=== PATIENT | male | born 1960 | race African-American/Black ===

== ENCOUNTER 2016-08-27 21:09 | Emergency (ER) | payer SELFPAY ==
[~2016-08-27 21:09] MED LIST: ATENOLOL; ELAVIL; ISOSORBIDE; NITR1OIN; OMEPRAZOLE; PROPRANOLOL; SIMVASTATIN
== END 2016-08-27 22:30 | disposition left against medical advice (07) ==
LOC: ER 21:09
DX: R07.9 Chest pain, unspecified (principal); Z53.21 Procedure and treatment not carried out due to patient leaving prior to being seen by health care provider

== ENCOUNTER 2017-02-10 22:03 | Inpatient (IN) | payer SELFPAY ==
[~2017-02-10] VITALS: Ht 175.3 cm; Wt 63.5 kg
[2017-02-10] MEDS ORDERED: NITROGLYCERIN OINT 1GM/INCH UDPKT TD STA (23:04)
[2017-02-10] MEDS ORDERED: MORPHINE SULFATE 4 MG/ML CPJ (NOT FOR IM USE) IV ONE (23:15)
[2017-02-10 23:29] LABS: PARTIAL THROMBOPLASTIN TIME 26.9 sec (23.4-31.0); PROTHROMBIN TIME 10.1 sec (9.4-11.6)
[2017-02-10 23:33] LABS: BASOPHILS % 0.6 % (0.0-2.0); EOSINOPHILS % 5.1 % (0.0-5.0); HEMOGLOBIN. 11.4 g/dL (14.0-18.0); LYMPHOCYTES % 28.6 % (20.0-50.0); MEAN CORPUSCULAR HEMOGLOBIN 25.3 pg (28.0-32.0); MEAN CORPUSCULAR VOLUME 79.9 fL (80.0-94.0); MEAN PLATELET VOLUME 8.4 fl (7.4-10.4); MONOCYTES % 10.2 % (2.0-8.0); NEUTROPHILS % 55.5 % (40.0-76.0); PLATELET 216 x1000/uL (130-400); RED BLOOD CELL COUNT 4.51 mill/uL (4.7-6.1); RED CELL DISTRIBUTION WIDTH 19.9 % (11.6-14.6)
[2017-02-10 23:35] LABS: CARBON DIOXIDE 27 mEq/L (21-32); CHLORIDE 108 mEq/L (98-107); TROPONIN I < 0.02 ng/mL (0.00-0.04)
[2017-02-10] MEDS ORDERED: ONDANSETRON HCL 4MG/2ML VIAL ONE (23:39)
[2017-02-10] MEDS ORDERED: ONDANSETRON HCL 4MG/2ML VIAL IV ONE (23:45)
[2017-02-11] MEDS ORDERED: NITROGLYCERIN OINT 1GM/INCH UDPKT TD ONE (00:19)
[2017-02-11] MEDS ORDERED: MORPHINE SULFATE 2 MG/ML CPJ (NOT FOR IM USE) IV PRN ×2 (02:00→14:30)
[2017-02-11 03:30] VITALS: BP 136/80
[2017-02-11] MEDS ORDERED: NITROGLYCERIN 0.4MG TABLET SL SL PRN (05:00)
[2017-02-11] MEDS ORDERED: LACTULOSE 20G/30ML UDC PO SCH (05:00)
[2017-02-11] MEDS ORDERED: ACETAMINOPHEN 650MG/20.3ML UDC PO PRN (05:00)
[2017-02-11] MEDS: MORPHINE SULFATE 2 MG/ML CPJ (NOT FOR IM USE) IV PRN ×2 (06:03→10:37)
[2017-02-11 08:00] VITALS: BP 145/102
[2017-02-11] MEDS: HYDROCODONE/ACETAMINOPHEN 10/325MG TABLET PO PRN ×3 (08:57→23:15)
[2017-02-11] MEDS: CLOPIDOGREL 75MG TABLET PO SCH (09:00)
[2017-02-11] MEDS: FUROSEMIDE 40MG/4ML VIAL IVP SCH (09:00)
[2017-02-11] MEDS: DOCUSATE SODIUM SUGAR FREE 100MG/10ML UDC NG SCH (09:00)
[2017-02-11] MEDS: METOPROLOL TARTRATE 50MG TABLET PO SCH ×2 (09:00→21:00)
[2017-02-11] MEDS: ISOSORBIDE MONONITRATE 60MG TABLET SR 24HR PO SCH (09:00)
[2017-02-11] MEDS: POTASSIUM CHLORIDE 10MEQ TABLET SR PO SCH (10:00)
[2017-02-11] MEDS: ASPIRIN 81MG TABLET PO SCH (10:00)
[2017-02-11] MEDS: NITROGLYCERIN OINT 1GM/INCH UDPKT TD SCH ×3 (10:00→22:00)
[2017-02-11] MEDS: RANOLAZINE 500 MG TAB.SR.12H PO SCH ×2 (10:00→21:00)
[2017-02-11] MEDS: PANTOPRAZOLE SODIUM 40 MG/VIAL IV SCH (10:01)
[2017-02-11] MEDS: LISINOPRIL 20MG TABLET PO SCH (10:01)
[2017-02-11] MEDS: AMLODIPINE 5MG TABLET PO SCH (10:01)
[2017-02-11] MEDS: LACTULOSE 20G/30ML UDC PO SCH (10:02)
[2017-02-11 11:16] LABS: CREATINE KINASE 151 IU/L (39-308); TROPONIN I < 0.02 ng/mL (0.00-0.04)
[2017-02-11 11:17] LABS: CREATINE KINASE MB FRACTION 1.4 ng/mL (0.5-3.6)
[2017-02-11 11:57] VITALS: BP 138/82
[2017-02-11 12:00] VITALS: BP 138/82
[2017-02-11] MEDS ORDERED: ISOS60TA4 PO (13:27)
[2017-02-11] MEDS ORDERED: PROT40 PO (13:27)
[2017-02-11] MEDS ORDERED: DOCU-150 PO (13:27)
[2017-02-11] MEDS ORDERED: ATOR40TA70 PO (13:27)
[2017-02-11] MEDS ORDERED: POTA10CA42 PO (13:27)
[2017-02-11] MEDS ORDERED: OXYC10TA48 PO (13:27)
[2017-02-11] MEDS ORDERED: AMLO10TA80 PO (13:27)
[2017-02-11] MEDS ORDERED: ASPI-1158 PO (13:27)
[2017-02-11] MEDS ORDERED: LACT10SO6 MT (13:27)
[2017-02-11] MEDS ORDERED: HYDR-4009 PO (13:27)
[2017-02-11] MEDS ORDERED: FURO40TA5 PO (13:27)
[2017-02-11] MEDS ORDERED: METO-385 PO (13:27)
[2017-02-11] MEDS ORDERED: NITR0.4T49 SL (13:27)
[2017-02-11] MEDS ORDERED: CLOP75TA33 PO (13:27)
[2017-02-11] MEDS ORDERED: ALPR0.5T PO (13:27)
[2017-02-11] MEDS ORDERED: AMIT100T2 PO (13:27)
[2017-02-11] MEDS ORDERED: RANO10003 PO (13:27)
[2017-02-11 16:00] VITALS: BP 139/86
[2017-02-11] MEDS: MORPHINE SULFATE 10 MG/ML CPJ IV PRN ×2 (16:30→21:03)
[2017-02-11] MEDS ORDERED: REGADENOSON 0.4 MG/5 ML IV NR (19:00)
[2017-02-11 20:00] VITALS: BP 115/67
[2017-02-11 20:27] LABS: CREATINE KINASE 137 IU/L (39-308); CREATINE KINASE MB FRACTION 1.6 ng/mL (0.5-3.6); TROPONIN I < 0.02 ng/mL (0.00-0.04)
[2017-02-11] MEDS ORDERED: ATORVASTATIN CALCIUM 40MG TABLET PO SCH (21:00)
[2017-02-11] MEDS ORDERED: AMITRIPTYLINE 50MG TABLET PO SCH (21:00)
[2017-02-12] VITALS: BP 110/70
[2017-02-12] MEDS: MORPHINE SULFATE 10 MG/ML CPJ IV PRN ×2 (01:28→04:54)
[2017-02-12 04:00] VITALS: BP 126/71
[2017-02-12] MEDS: NITROGLYCERIN OINT 1GM/INCH UDPKT TD SCH (06:00)
[2017-02-12 08:00] VITALS: BP 156/104
[2017-02-12] MEDS: PANTOPRAZOLE SODIUM 40 MG/VIAL IV SCH (08:56)
[2017-02-12] MEDS: METOPROLOL TARTRATE 50MG TABLET PO SCH (08:57)
[2017-02-12] MEDS: ASPIRIN 81MG TABLET PO SCH (08:57)
[2017-02-12] MEDS: ISOSORBIDE MONONITRATE 60MG TABLET SR 24HR PO SCH (09:00)
[2017-02-12] MEDS: CLOPIDOGREL 75MG TABLET PO SCH (09:00)
[2017-02-12] MEDS: RANOLAZINE 500 MG TAB.SR.12H PO SCH (09:00)
[2017-02-12] MEDS: FUROSEMIDE 40MG/4ML VIAL IVP SCH (09:00)
[2017-02-12] MEDS: LACTULOSE 20G/30ML UDC PO SCH (09:00)
[2017-02-12] MEDS: LISINOPRIL 20MG TABLET PO SCH (09:00)
[2017-02-12] MEDS: DOCUSATE SODIUM SUGAR FREE 100MG/10ML UDC NG SCH (09:00)
[2017-02-12] MEDS: AMLODIPINE 5MG TABLET PO SCH (09:00)
[2017-02-12] MEDS: POTASSIUM CHLORIDE 10MEQ TABLET SR PO SCH (09:00)
[2017-02-12 09:24] LABS: CREATINE KINASE 115 IU/L (39-308); CREATINE KINASE MB FRACTION 1.3 ng/mL (0.5-3.6); HDL CHOLESTEROL 80 mg/dL (40-59); LDL CHOLESTEROL 64 mg/dL (5-100); TROPONIN I < 0.02 ng/mL (0.00-0.04)
== END 2017-02-12 09:20 | disposition left against medical advice (07) | DRG 198 ==
LOC: ER 22:29 → 5WST 02-11 00:47 → ENRESERV 02-11 01:37
PROVIDERS: ADMIT Internal Medicine; ATTEND Internal Medicine
DX: I25.10 Atherosclerotic heart disease of native coronary artery without angina pectoris (principal); I10 Essential (primary) hypertension; E78.5 Hyperlipidemia, unspecified; I49.9 Cardiac arrhythmia, unspecified; F10.10 Alcohol abuse, uncomplicated; F17.210 Nicotine dependence, cigarettes, uncomplicated; F41.9 Anxiety disorder, unspecified; Z53.21 Procedure and treatment not carried out due to patient leaving prior to being seen by health care provider; I16.0 Hypertensive urgency; K21.9 Gastro-esophageal reflux disease without esophagitis; K76.9 Liver disease, unspecified; Z79.899 Other long term (current) drug therapy; Z82.49 Family history of ischemic heart disease and other diseases of the circulatory system; Z86.010 Personal history of colon polyps; I25.2 Old myocardial infarction; Z72.89 Other problems related to lifestyle
CPT/HCPCS: 36415; 71010; 80053; 80061; 82550; 82553; 83690; 84484; 85025; 85610; 85651; 85730; 93005; C9113; J1940; J2270; J2405

== ENCOUNTER 2018-03-06 17:13 | Inpatient (IN) | payer MEDICAID ==
[~2018-03-06] VITALS: Ht 175.3 cm; Wt 65.8 kg
[~2018-03-06 17:13] MED LIST changes: +ALPR0.5T PO; +AMIT100T2 PO; +AMLO10TA80 PO; +ASPI-1158 PO; +ATOR40TA70 PO; +CLOP75TA33 PO; +DOCU-150 PO; +FURO40TA5 PO; +HYDR-4009 PO; +ISOS60TA4 PO; +LACT10SO6 MT; +METO-385 PO; +NITR0.4T49 SL; +OXYC10TA48 PO; +POTA10CA42 PO; +PROT40 PO; +RANO10003 PO
[2018-03-06] MEDS ORDERED: SODIUM CHLORIDE 0.9% 1,000 ML IV ONE (18:40)
[2018-03-06] MEDS ORDERED: ONDANSETRON HCL 4MG/2ML INJ IV STA (18:40)
[2018-03-06] MEDS ORDERED: MORPHINE SULFATE 4 MG/ML CPJ (NOT FOR IM USE) IV STA (18:40)
[2018-03-06 19:13] LABS: BASOPHILS % 0.9 % (0.0-2.0); EOSINOPHILS % 0.8 % (0.0-5.0); HEMOGLOBIN. 13.2 g/dL (14.0-18.0); LYMPHOCYTES % 19.6 % (20.0-50.0); MEAN CORPUSCULAR HEMOGLOBIN 27.7 pg (28.0-32.0); MEAN CORPUSCULAR VOLUME 85.8 fL (80.0-94.0); MEAN PLATELET VOLUME 9.5 fl (7.4-10.4); MONOCYTES % 5.7 % (2.0-8.0); PLATELET 219 x1000/uL (130-400); RED BLOOD CELL COUNT 4.78 mill/uL (4.7-6.1)
[2018-03-06 19:17] LABS: CHLORIDE 107 mEq/L (98-107)
[2018-03-06 19:21] LABS: PROTHROMBIN TIME 10.1 sec (9.1-11.1)
[2018-03-06 20:07] LABS: CLARITY URINE CLEAR (CLEAR); COLOR URINE YELLOW (YELLOW); KETONES URINE NEGATIVE (NEGATIVE); LEUKOCYTE ESTERASE URINE NEGATIVE (NEGATIVE); NITRITE URINE NEGATIVE (NEGATIVE); OCCULT BLOOD URINE NEGATIVE (NEGATIVE); PH URINE 6.5 (4.5-8.0); PROTEIN URINE NEGATIVE (NEGATIVE); SPECIFIC GRAVITY URINE 1.016 (1.005-1.030); UROBILINOGEN URINE 0.2 E.U./dL (0.2-1.0)
[2018-03-06 20:17] LABS: OPIATES URINE SCREEN PRESUMTIVE POSITIVE (NEGATIVE)
[2018-03-06 20:18] LABS: *AMPHETAMINES SCREEN URINE NEGATIVE (NEGATIVE); *BARBITURATES SCREEN URINE NEGATIVE (NEGATIVE); *BENZODIAZEPINES SCREEN URINE NEGATIVE (NEGATIVE); *COCAINE SCREEN URINE NEGATIVE (NEGATIVE); CANNABINOID URINE SCREEN NEGATIVE (NEGATIVE); METHADONE URINE SCREEN NEGATIVE (NEGATIVE); PHENCYCLIDINE URINE SCREEN NEGATIVE (NEGATIVE)
[2018-03-06] MEDS ORDERED: MAGNESIUM/ALUMINUM HYDROXIDE/SIMETHICONE 30ML UDC PO PRN (21:15)
[2018-03-06] MEDS ORDERED: DOCUSATE SODIUM 100MG CAPSULE PO PRN (21:15)
[2018-03-06] MEDS ORDERED: IPRATROPIUM/ALBUTEROL 0.5-3(2.5)MG/3ML NEB INH PRN (21:15)
[2018-03-06] MEDS ORDERED: NITROGLYCERIN 0.4MG TABLET SL SL PRN (21:15)
[2018-03-06] MEDS ORDERED: GUAIFENESIN 200MG/10ML SUGAR FREE UDC PO PRN (21:15)
[2018-03-06] MEDS ORDERED: ONDANSETRON HCL 4MG/2ML INJ IV PRN (21:15)
[2018-03-06] MEDS ORDERED: KETOROLAC 15MG/ML VIAL IV PRN (21:15)
[2018-03-06] MEDS ORDERED: ZOLPIDEM TARTRATE 5MG TABLET PO PRN (21:15)
[2018-03-06] MEDS ORDERED: CLONIDINE 0.1MG TABLET PO PRN (21:15)
[2018-03-06] MEDS ORDERED: ACETAMINOPHEN 325MG TABLET PO PRN (21:15)
[2018-03-06] MEDS ORDERED: ASPIRIN 81MG TABLET PO ONE (21:30)
[2018-03-06] MEDS ORDERED: DIPHENHYDRAMINE 50MG/ML VIAL IV PRN (23:02)
[2018-03-06] MEDS ORDERED: IOHEXOL-300 100 ML BOTTLE ONE (23:27)
[2018-03-06 23:45] VITALS: BP 144/89
[2018-03-07] VITALS: BP 138/83
[2018-03-07 00:19] LABS: CREATINE KINASE 159 IU/L (39-308)
[2018-03-07 00:20] LABS: CREATINE KINASE MB FRACTION < 1.0 ng/mL (0.5-3.6)
[2018-03-07 04:00] VITALS: BP 141/94
[2018-03-07 07:31] LABS: CREATINE KINASE 144 IU/L (39-308)
[2018-03-07 07:32] LABS: CREATINE KINASE MB FRACTION < 1.0 ng/mL (0.5-3.6)
[2018-03-07 08:00] VITALS: BP 95/54
[2018-03-07] MEDS ORDERED: AMLODIPINE 10MG TABLET PO SCH (09:00)
[2018-03-07] MEDS ORDERED: ASPIRIN 325MG EC TABLET PO SCH (09:00)
[2018-03-07] MEDS ORDERED: FAMOTIDINE 20MG TABLET PO SCH (09:00)
[2018-03-07] MEDS ORDERED: METOPROLOL TARTRATE 25MG TABLET PO SCH (09:00)
[2018-03-07 09:29] VITALS: BP 98/54
[2018-03-08] MEDS ORDERED: ENOXAPARIN 40MG/0.4ML SYR SUBCUT SCH (09:00)
== END 2018-03-07 10:30 | disposition home or self-care (01) | DRG 198 ==
LOC: ER 17:13 → ENRESERV 18:49 → CANBEDREQ 19:56 → 6WST 21:28 → ER 23:40 → 6WST 03-07 02:35
PROVIDERS: ADMIT Internal Medicine; ATTEND Internal Medicine
DX: R07.89 Other chest pain (principal); I25.10 Atherosclerotic heart disease of native coronary artery without angina pectoris; K74.60 Unspecified cirrhosis of liver; E78.00 Pure hypercholesterolemia, unspecified; I10 Essential (primary) hypertension; K21.9 Gastro-esophageal reflux disease without esophagitis; Z76.5 Malingerer [conscious simulation]; Z95.5 Presence of coronary angioplasty implant and graft
CPT/HCPCS: 36415; 71045; 74176; 80061; 80305; 82550; 82553; 83036; 83880; 84484; 93005; G0482; J1200; J1885; J2270; J2405; J7030; Q9967

== ENCOUNTER 2019-03-21 03:36 | Emergency (ER) | payer MEDICAID ==
[~2019-03-21] VITALS: Ht 175.3 cm; Wt 68.0 kg
[2019-03-21] MEDS ORDERED: NITROGLYCERIN 0.4MG TABLET SL SL ONE (05:30)
[2019-03-21 05:36] LABS: BASOPHILS % 0.9 % (0.0-2.0); EOSINOPHILS % 5.9 % (0.0-5.0); HEMATOCRIT. 37.5 % (42.0-52.0); HEMOGLOBIN. 12.2 g/dL (14.0-18.0); LYMPHOCYTES % 37.3 % (20.0-50.0); MEAN CORPUSCULAR HEMOGLOBIN 27.9 pg (28.0-32.0); MEAN CORPUSCULAR VOLUME 85.5 fL (80.0-94.0); MEAN PLATELET VOLUME 9.7 fl (7.4-10.4); MONOCYTES % 7.6 % (2.0-8.0); NEUTROPHILS % 48.3 % (40.0-76.0); PLATELET 202 x1000/uL (130-400); RED BLOOD CELL COUNT 4.38 mill/uL (4.7-6.1)
[2019-03-21 05:50] LABS: CHLORIDE 107 mEq/L (98-107)
[2019-03-21] MEDS ORDERED: MORPHINE SULFATE 2 MG/ML CPJ (NOT FOR IM USE) IV ONE (07:00)
[2019-03-21 07:15] VITALS: BP 119/83
[2019-03-21] MEDS ORDERED: MORPHINE SULFATE 2 MG/ML CPJ (NOT FOR IM USE) IV PRN (10:30)
[2019-03-21] MEDS ORDERED: GUAIFENESIN 200MG/10ML SUGAR FREE UDC PO PRN (10:30)
[2019-03-21] MEDS ORDERED: NA PHOS,M-B/NA PHOS,DI-BA ENEMA 118ML PR PRN (10:30)
[2019-03-21] MEDS ORDERED: LORAZEPAM 2MG/ML CPJ IV PRN (10:30)
[2019-03-21] MEDS ORDERED: HYDROCODONE/ACETAMINOPHEN 5/325MG TABLET PO PRN (10:30)
[2019-03-21] MEDS ORDERED: CLONIDINE 0.1MG TABLET PO PRN (10:30)
[2019-03-21] MEDS ORDERED: MAGNESIUM/ALUMINUM HYDROXIDE/SIMETHICONE 30ML UDC PO PRN (10:30)
[2019-03-21] MEDS ORDERED: DIPHENHYDRAMINE 50MG/ML VIAL IV PRN (10:30)
[2019-03-21] MEDS ORDERED: DOCUSATE SODIUM 100MG CAPSULE PO PRN (10:30)
[2019-03-21] MEDS ORDERED: ACETAMINOPHEN 325MG TABLET PO PRN (10:30)
[2019-03-21] MEDS ORDERED: ONDANSETRON HCL 4MG/2ML INJ IV PRN (10:30)
[2019-03-21] MEDS ORDERED: IPRATROPIUM/ALBUTEROL 0.5-3(2.5)MG/3ML NEB NEB PRN (10:30)
[2019-03-21] MEDS ORDERED: ENOXAPARIN 40MG/0.4ML SYR SUBCUT SCH (12:00)
[2019-03-22] MEDS ORDERED: ASPIRIN 81MG EC TABLET PO SCH (09:00)
== END 2019-03-21 08:00 | disposition home or self-care (01) ==
LOC: ER 03:36 → EDBEDREQ 06:26 → EDBEDREQTM 06:26 → CANBEDREQ 07:59 → ER 08:00
DX: R07.9 Chest pain, unspecified (principal); I25.10 Atherosclerotic heart disease of native coronary artery without angina pectoris; I25.2 Old myocardial infarction; I13.0 Hypertensive heart and chronic kidney disease with heart failure and stage 1 through stage 4 chronic kidney disease, or unspecified chronic kidney disease; N18.9 Chronic kidney disease, unspecified; I50.9 Heart failure, unspecified; E78.00 Pure hypercholesterolemia, unspecified; Z88.6 Allergy status to analgesic agent; Z79.82 Long term (current) use of aspirin; Z91.012 Allergy to eggs; Z91.018 Allergy to other foods
CPT/HCPCS: 36415; 71045; 80053; 80320; 83880; 84484; 85025; 93005; 96374; 99284; J2270; G0480

== ENCOUNTER 2019-03-31 15:14 | Inpatient (IN) | payer MEDICAID ==
[~2019-03-31] VITALS: Ht 175.3 cm; Wt 49.9 kg
[2019-03-31 16:49] LABS: EOSINOPHILS % 4.5 % (0.0-5.0); HEMATOCRIT. 36.5 % (42.0-52.0); HEMOGLOBIN. 11.8 g/dL (14.0-18.0); LYMPHOCYTES % 25.6 % (20.0-50.0); MEAN CORPUSCULAR HEMOGLOBIN 27.8 pg (28.0-32.0); MEAN CORPUSCULAR VOLUME 86.1 fL (80.0-94.0); MEAN PLATELET VOLUME 9.2 fl (7.4-10.4); MONOCYTES % 10.5 % (2.0-8.0); NEUTROPHILS % 58.4 % (40.0-76.0); PLATELET 175 x1000/uL (130-400); RED BLOOD CELL COUNT 4.24 mill/uL (4.7-6.1); RED CELL DISTRIBUTION WIDTH 17.5 % (11.6-14.6)
[2019-03-31 16:53] LABS: CHLORIDE 106 mEq/L (98-107)
[2019-03-31 16:55] LABS: PROTHROMBIN TIME 9.8 sec (9.6-11.0)
[2019-03-31 16:57] LABS: ETHANOL BLOOD 29 mg/dL
[2019-03-31 17:38] LABS: *AMPHETAMINES SCREEN URINE NEGATIVE (NEGATIVE); *BARBITURATES SCREEN URINE NEGATIVE (NEGATIVE); *COCAINE SCREEN URINE NEGATIVE (NEGATIVE)
[2019-03-31 17:39] LABS: *BENZODIAZEPINES SCREEN URINE NEGATIVE (NEGATIVE); CANNABINOID URINE SCREEN NEGATIVE (NEGATIVE); METHADONE URINE SCREEN NEGATIVE (NEGATIVE); OPIATES URINE SCREEN PRESUMTIVE POSITIVE (NEGATIVE); PHENCYCLIDINE URINE SCREEN NEGATIVE (NEGATIVE)
[2019-03-31] MEDS ORDERED: ACETAMINOPHEN WITH CODEINE 300/30MG TABLET PO STA (22:26)
[2019-03-31] MEDS ORDERED: NITROGLYCERIN 0.4MG TABLET SL SL PRN (22:30)
[2019-03-31] MEDS ORDERED: ASPIRIN 81MG TABLET PO ONE (22:30)
[2019-03-31] MEDS ORDERED: ONDANSETRON HCL 4MG/2ML INJ IV PRN (23:45)
[2019-03-31] MEDS ORDERED: GUAIFENESIN 200MG/10ML SUGAR FREE UDC PO PRN (23:45)
[2019-03-31] MEDS ORDERED: MAGNESIUM/ALUMINUM HYDROXIDE/SIMETHICONE 30ML UDC PO PRN (23:45)
[2019-03-31] MEDS ORDERED: MAGNESIUM HYDROXIDE 400MG/5ML 30ML UDC PO PRN (23:45)
[2019-03-31] MEDS ORDERED: DIPHENHYDRAMINE 50MG/ML VIAL IV PRN (23:45)
[2019-03-31] MEDS ORDERED: LORAZEPAM 0.5MG TABLET PO PRN (23:45)
[2019-03-31] MEDS ORDERED: TEMAZEPAM 15MG CAPSULE PO PRN (23:45)
[2019-03-31] MEDS ORDERED: IPRATROPIUM/ALBUTEROL 0.5-3(2.5)MG/3ML NEB HHN PRN (23:45)
[2019-03-31] MEDS ORDERED: ACETAMINOPHEN 325MG TABLET PO PRN (23:45)
[2019-04-01 04:15] VITALS: BP 129/93
[2019-04-01] MEDS: SODIUM CHLORIDE 0.9% INJ 3ML FLUSH IVF SCH ×3 (06:00→22:00)
[2019-04-01] MEDS: ACETAMINOPHEN WITH CODEINE 300/30MG TABLET PO PRN ×2 (06:41→20:32)
[2019-04-01] MEDS ORDERED: ENOXAPARIN 40MG/0.4ML SYR SUBCUT SCH (09:00)
[2019-04-01] MEDS: DOCUSATE SODIUM 100MG CAPSULE PO SCH ×2 (09:22→16:55)
[2019-04-01] MEDS: ASPIRIN 81MG EC TABLET PO SCH (09:23)
[2019-04-01] MEDS: AMLODIPINE 10MG TABLET PO SCH (09:23)
[2019-04-01] MEDS: METOPROLOL TARTRATE 25MG TABLET PO SCH ×2 (09:23→20:47)
[2019-04-01 10:00] VITALS: BP 146/87
[2019-04-01 12:00] VITALS: BP 124/75
[2019-04-01 12:52] LABS: BASOPHILS % 0.5 % (0.0-2.0); HEMATOCRIT. 34.8 % (42.0-52.0); HEMOGLOBIN. 11.5 g/dL (14.0-18.0); LYMPHOCYTES % 24.8 % (20.0-50.0); MEAN CORPUSCULAR HEMOGLOBIN 28.3 pg (28.0-32.0); MEAN CORPUSCULAR VOLUME 85.6 fL (80.0-94.0); MEAN PLATELET VOLUME 9.3 fl (7.4-10.4); MONOCYTES % 11.1 % (2.0-8.0); NEUTROPHILS % 58.6 % (40.0-76.0); PLATELET 150 x1000/uL (130-400); RED BLOOD CELL COUNT 4.07 mill/uL (4.7-6.1); RED CELL DISTRIBUTION WIDTH 17.4 % (11.6-14.6)
[2019-04-01 13:02] LABS: CHLORIDE 109 mEq/L (98-107)
[2019-04-01] MEDS ORDERED: REGADENOSON 0.4 MG/5 ML IV NR (15:00)
[2019-04-01 16:00] VITALS: BP 147/95
[2019-04-01 20:00] VITALS: BP 138/94
[2019-04-01] MEDS ORDERED: ATORVASTATIN CALCIUM 40MG TABLET PO SCH (21:00)
[2019-04-01] MEDS ORDERED: AMITRIPTYLINE 50MG TABLET PO SCH (21:00)
[2019-04-02 04:00] VITALS: BP 136/90
[2019-04-02] MEDS: SODIUM CHLORIDE 0.9% INJ 3ML FLUSH IVF SCH ×2 (05:49→14:00)
[2019-04-02 07:11] LABS: VITAMIN B12 SERUM 168 pg/mL (211-911)
[2019-04-02 07:25] LABS: BASOPHILS % 0.4 % (0.0-2.0); EOSINOPHILS % 5.2 % (0.0-5.0); HEMATOCRIT. 34.8 % (42.0-52.0); HEMOGLOBIN. 11.5 g/dL (14.0-18.0); LYMPHOCYTES % 22.1 % (20.0-50.0); MEAN CORPUSCULAR HEMOGLOBIN 28.4 pg (28.0-32.0); MEAN CORPUSCULAR VOLUME 85.7 fL (80.0-94.0); MEAN PLATELET VOLUME 9.3 fl (7.4-10.4); MONOCYTES % 9.6 % (2.0-8.0); NEUTROPHILS % 62.7 % (40.0-76.0); PLATELET 155 x1000/uL (130-400); RED BLOOD CELL COUNT 4.06 mill/uL (4.7-6.1); RED CELL DISTRIBUTION WIDTH 17.9 % (11.6-14.6)
[2019-04-02 08:00] VITALS: BP 135/81
[2019-04-02 08:03] LABS: CHLORIDE 109 mEq/L (98-107)
[2019-04-02] MEDS ORDERED: ENOXAPARIN 30MG/0.3ML SYR SUBCUT SCH (09:00)
[2019-04-02] MEDS: DOCUSATE SODIUM 100MG CAPSULE PO SCH (09:00)
[2019-04-02] MEDS ORDERED: CYANOCOBALAMIN 1000MCG/ML VIAL IM SCH (09:15)
[2019-04-02] MEDS: ASPIRIN 81MG EC TABLET PO SCH (10:54)
[2019-04-02] MEDS: AMLODIPINE 10MG TABLET PO SCH (10:54)
[2019-04-02] MEDS: METOPROLOL TARTRATE 25MG TABLET PO SCH (10:55)
[2019-04-02] MEDS: ACETAMINOPHEN WITH CODEINE 300/30MG TABLET PO PRN (11:06)
[2019-04-02 12:00] VITALS: BP 134/79
[2019-04-02 14:31] VITALS: BP 134/79
[2019-04-02 16:00] VITALS: BP 125/79
== END 2019-04-02 17:28 | disposition home or self-care (01) | DRG 203 ==
LOC: ER 15:14 → EEVIPCON 15:14 → 7WST 22:26 → ENRESERV 04-01 03:06
PROVIDERS: ADMIT Internal Medicine; ATTEND Internal Medicine
DX: M94.0 Chondrocostal junction syndrome [Tietze] (principal); I11.0 Hypertensive heart disease with heart failure; I50.9 Heart failure, unspecified; R07.89 Other chest pain; I25.110 Atherosclerotic heart disease of native coronary artery with unstable angina pectoris; E78.5 Hyperlipidemia, unspecified; F41.1 Generalized anxiety disorder; Z95.5 Presence of coronary angioplasty implant and graft; E78.00 Pure hypercholesterolemia, unspecified; Z82.49 Family history of ischemic heart disease and other diseases of the circulatory system; Z88.8 Allergy status to other drugs, medicaments and biological substances; Z79.82 Long term (current) use of aspirin; Z79.891 Long term (current) use of opiate analgesic; I25.2 Old myocardial infarction; Z76.5 Malingerer [conscious simulation]; Z79.899 Other long term (current) drug therapy
CPT/HCPCS: 36415; 71045; 80048; 80053; 80305; 80320; 82607; 83880; 84443; 84484; 85025; 93005; 93306; 93970; 99285; J1650; J3420; G0480

== ENCOUNTER 2019-05-17 15:19 | Emergency (ER) | payer MEDICAID ==
[~2019-05-17] VITALS: Ht 175.3 cm; Wt 74.8 kg
[~2019-05-17 15:19] MED LIST changes: -LACT10SO6 MT
[2019-05-17 18:19] VITALS: BP 131/63
== END 2019-05-17 18:20 | disposition left against medical advice (07) ==
LOC: ER 15:19
DX: R07.89 Other chest pain (principal)
CPT/HCPCS: 87804; 99283